=== PATIENT | female | born 1965 ===

== ENCOUNTER 2017-03-28 19:31 | Emergency (ER) | payer BC ==
[~2017-03-28] VITALS: Ht 170.2 cm; Wt 90.7 kg
[2017-03-28 19:32] VITALS: Ht 170.2 cm; Wt 90.7 kg
[2017-03-28 20:54] VITALS: BP 120/91
== END 2017-03-28 20:54 | disposition short-term general hospital (02) ==
LOC: ED 19:31
DX: F41.8 Other specified anxiety disorders (principal); R53.1 Weakness; R07.89 Other chest pain; R51 Headache; R06.02 Shortness of breath; H53.8 Other visual disturbances; F43.11 Post-traumatic stress disorder, acute; Z88.8 Allergy status to other drugs, medicaments and biological substances